=== PATIENT | female | born 1945 | race Caucasian/White ===

== ENCOUNTER 2022-03-13 19:43 | Inpatient (IN) | payer OTHER, SELFPAY ==
[~2022-03-13] VITALS: Ht 160 cm; Wt 68.0 kg
[2022-03-13 21:54] VITALS: BP 132/62
[2022-03-13] MEDS ORDERED: ACETAMINOPHEN TAB 650MG DOSE (2X325MG) PO PRN (23:10)
[2022-03-13] MEDS ORDERED: MOM 30ML SUSPENSION UDC PO PRN (23:10)
[2022-03-13] MEDS ORDERED: UNRESOLVED CLARIFICATION ENTRY XX STA (23:18)
[2022-03-13] MEDS ORDERED: GLUCOSE 4GM CHEW TABLET PO PRN (23:20)
[2022-03-13] MEDS ORDERED: GLUCAGON INJ 1MG VIAL SC PRN (23:20)
[2022-03-13] MEDS ORDERED: DEXTROSE 50% 50 ML SYRINGE IV PRN (23:20)
[2022-03-14] MEDS ORDERED: PIPE3INJ6 IV (03:18)
[2022-03-14] MEDS ORDERED: SPIR1AER INH (03:18)
[2022-03-14] MEDS ORDERED: METF-839 PO (03:18)
[2022-03-14] MEDS ORDERED: DONE-1 PO (03:18)
[2022-03-14] MEDS ORDERED: ASPI-161 PO (03:18)
[2022-03-14] MEDS ORDERED: CALC600T27 PO (03:18)
[2022-03-14] MEDS ORDERED: SYMB16INH INH (03:18)
[2022-03-14] MEDS ORDERED: VANC1PIG IV (03:18)
[2022-03-14] MEDS ORDERED: MEMA10TA19 PO (03:18)
[2022-03-14] MEDS ORDERED: CITA40TA7 PO (03:26)
[2022-03-14] MEDS ORDERED: C 50TAB PO (03:26)
[2022-03-14] MEDS ORDERED: CULT10CA4 PO (03:26)
[2022-03-14] MEDS ORDERED: SENN-122 PO (03:26)
[2022-03-14] MEDS ORDERED: FERR1TAB8 PO (03:26)
[2022-03-14] MEDS ORDERED: DOCU100C16 PO (03:26)
[2022-03-14] MEDS ORDERED: ALBU8.5H INH (03:26)
[2022-03-14] MEDS ORDERED: OMEP-173 PO (03:26)
[2022-03-14] MEDS ORDERED: PRAV40TA2 PO (03:26)
[2022-03-14] MEDS ORDERED: OXYB5TAB10 PO (03:26)
[2022-03-14] MEDS ORDERED: HOME MED LIST COMPLETE! XX SCH (03:30)
[2022-03-14] MEDS ORDERED: ALBUTEROL SULFATE 2.5 MG/0.5 ML INH NEB SOLN NEB PRN (04:20)
[2022-03-14 06:00] VITALS: BP 143/66
[2022-03-14 06:03] LABS: BASO # 0.1 10^3/uL (0.0-0.2); BASO % 0.3 % (0.0-1.0); EOS # 0.8 10^3/uL (0.0-0.5); EOS % 2.2 % (0.0-3.0); HEMATOCRIT 26.8 % (36.0-47.0); HEMOGLOBIN 7.7 g/dl (12.0-15.5); LYMPH # 2.4 10^3/uL (1.5-5.0); LYMPH % 6.9 % (24.0-44.0); MEAN CORPUSCULAR HEMOGLOBIN 23.5 pg (27.0-33.0); MEAN CORPUSCULAR HGB CONC 28.7 g/dl (32.0-36.5); MONO # 0.7 10^3/uL (0.0-0.8); MONO % 1.9 % (2.0-8.0); NEUTROPHILS # 28.4 10^3/uL (1.5-8.5); NEUTROPHILS % 83.1 % (36.0-66.0); PLATELET COUNT, AUTOMATED 175 10^3/uL (150-450); RED BLOOD COUNT 3.27 10^6/uL (4.00-5.40)
[2022-03-14 06:06] LABS: WHITE BLOOD COUNT 34.2 10^3/uL (4.0-10.0)
[2022-03-14] MEDS: INSULIN LISPRO (NovoLOG) PER UNIT SC SCH ×3 (07:30→17:09)
[2022-03-14 07:35] LABS: ALBUMIN 2.7 G/DL (3.2-5.2); ALT/SGPT 13 U/L (7.0-40); BILIRUBIN,TOTAL 0.3 MG/DL (0.3-1.2); BLOOD UREA NITROGEN 7 MG/DL (9-23); CALCIUM LEVEL 8.4 MG/DL (8.3-10.6); CARBON DIOXIDE LEVEL 28 MMOL/L (20-31); CHLORIDE LEVEL 102 MMOL/L (98-107); CREATININE FOR GFR 0.67 MG/DL (0.55-1.30); GLOMERULAR FILTRATION RATE > 60.0 (>39); GLUCOSE, FASTING 102 MG/DL (74-106); POTASSIUM SERUM 3.5 MMOL/L (3.5-5.1); SODIUM LEVEL 138 MMOL/L (136-145); TOTAL PROTEIN 5.9 G/DL (5.7-8.2)
[2022-03-14 09:26] LABS: APPEARANCE, URINE MANUAL CLEAR (CLEAR); COLOR, URINE MANUAL YELLOW (YELLOW)
[2022-03-14 09:27] LABS: BILIRUBIN, URINE MANUAL NEGATIVE (NEGATIVE); GLUCOSE, URINE (UA) MANUAL NEGATIVE (NEGATIVE); KETONE, URINE MANUAL NEGATIVE (NEGATIVE); LEUKOCYTE ESTERASE, URINE MAN NEGATIVE (NEGATIVE); NITRITE, URINE MANUAL NEGATIVE (NEGATIVE); PROTEIN, URINE MANUAL 2+ mg/dL (NEGATIVE); SPECIFIC GRAVITY,URINE MANUAL 1.015 (1.002-1.035); UROBILINOGEN, URINE MANUAL NORMAL (NORMAL)
[2022-03-14 09:28] LABS: BLOOD URINE MANUAL NEGATIVE (NEGATIVE)
[2022-03-14] MEDS: DOCUSATE SODIUM 100MG CAPSULE PO SCH (09:37)
[2022-03-14] MEDS: PRAVASTATIN 20 MG TAB PO SCH (09:37)
[2022-03-14] MEDS: FERROUS SULFATE 325MG TAB PO SCH ×3 (09:37→20:25)
[2022-03-14] MEDS: CitaloPRAM (CeleXA) 20 MG TAB PO SCH (09:37)
[2022-03-14] MEDS: NYSTATIN 500,000 U/5 ML SUSP UDC SS SCH ×3 (09:37→20:25)
[2022-03-14] MEDS: OMEPRAZOLE 20MG CAP PO SCH (09:37)
[2022-03-14 10:05] LABS: BACTERIA, URINE SMALL AMOUNT; RBC, URINE 0-1 /hpf (0-3); SQUAMOUS EPITHELIAL CELL URINE MOD AMOUNT /hpf (SMALL AMT)
[2022-03-14 10:06] LABS: GRANULAR CAST, URINE 0-1 /lpf; MUCUS, URINE MOD AMOUNT (NEGATIVE); YEAST, URINE SMALL AMOUNT
[2022-03-14 10:37] LABS: FERRITIN 30.6 NG/ML (7.3-270.7); IRON (FE) 17 UG/DL (50-170); PERCENT SATURATION 6.7 % (13.2-45.0); TOTAL IRON BINDING CAPACITY 255 UG/DL (250-425); VITAMIN B12 LEVEL 247 PG/ML (211-911)
[2022-03-14] MEDS: TIOTROPIUM INHALER/CAPSULE (SPIRIVA) INH SCH (13:54)
[2022-03-14 14:00] VITALS: BP 145/65
[2022-03-14] MEDS: oxyBUTYnin 5 MG TAB PO SCH ×2 (15:10→20:25)
[2022-03-14 17:12] LABS: FOLATE 5.6 NG/ML (>5.4)
[2022-03-14 19:21] VITALS: BP 133/57
[2022-03-14] MEDS: SYMBICORT 160/4.5MCG INHALER 6GM INH SCH (19:48)
[2022-03-14 19:49] VITALS: O2SAT 97
[2022-03-14] MEDS ORDERED: INSULIN LISPRO (NovoLOG) PER UNIT SC SCH (21:00)
[2022-03-14] MEDS ORDERED: SENOKOT S TAB PO SCH (21:00)
[2022-03-15 05:43] VITALS: BP 118/64
[2022-03-15 07:20] LABS: HEMATOCRIT 26.5 % (36.0-47.0); HEMOGLOBIN 7.6 g/dl (12.0-15.5); MEAN CORPUSCULAR HEMOGLOBIN 24.1 pg (27.0-33.0); MEAN CORPUSCULAR HGB CONC 28.7 g/dl (32.0-36.5); MEAN CORPUSCULAR VOLUME 83.9 fl (80.0-96.0); PLATELET COUNT, AUTOMATED 155 10^3/uL (150-450); RED BLOOD COUNT 3.16 10^6/uL (4.00-5.40); WHITE BLOOD COUNT 27.8 10^3/uL (4.0-10.0)
[2022-03-15] MEDS: INSULIN LISPRO (NovoLOG) PER UNIT SC SCH ×2 (07:30→12:04)
[2022-03-15 07:54] LABS: BLOOD UREA NITROGEN 9 MG/DL (9-23); CALCIUM LEVEL 8.4 MG/DL (8.3-10.6); CARBON DIOXIDE LEVEL 30 MMOL/L (20-31); CHLORIDE LEVEL 103 MMOL/L (98-107); CREATININE FOR GFR 0.68 MG/DL (0.55-1.30); FERRITIN 29.9 NG/ML (7.3-270.7); GLOMERULAR FILTRATION RATE > 60.0 (>39); GLUCOSE, FASTING 94 MG/DL (74-106); POTASSIUM SERUM 3.2 MMOL/L (3.5-5.1); SODIUM LEVEL 140 MMOL/L (136-145)
[2022-03-15 07:57] LABS: EOSINOPHILS 4 % (0-3); LYMPHOCYTES 6 % (16-44); METAMYELOCYTES 1 % (0-0); MONOCYTES 1 % (0-5); MYELOCYTES 1 % (0-0); NEUTROPHILS 87 % (28-66)
[2022-03-15 07:58] LABS: ANISOCYTOSIS 4+; OVALOCYTES 1+; POIKILOCYTOSIS 1+
[2022-03-15 07:59] LABS: PLATELET ESTIMATE NORMAL (NORMAL); POLYCHROMASIA 1+
[2022-03-15 08:00] LABS: SCHISTOCYTES 2+
[2022-03-15 08:02] LABS: HYPOCHROMASIA 1+
[2022-03-15 08:29] LABS: ERYTHROCYTE SEDIMENTATION RATE 26 mm/hr (0-30)
[2022-03-15 08:30] VITALS: O2SAT 91
[2022-03-15] MEDS: SYMBICORT 160/4.5MCG INHALER 6GM INH SCH (08:32)
[2022-03-15] MEDS: TIOTROPIUM INHALER/CAPSULE (SPIRIVA) INH SCH (08:32)
[2022-03-15] MEDS: DOCUSATE SODIUM 100MG CAPSULE PO SCH ×2 (09:00→09:32)
[2022-03-15] MEDS ORDERED: POTASSIUM CHLORIDE 10MEQ SR TABLET PO ONE (09:25)
[2022-03-15] MEDS: OMEPRAZOLE 20MG CAP PO SCH (09:32)
[2022-03-15] MEDS: CitaloPRAM (CeleXA) 20 MG TAB PO SCH (09:32)
[2022-03-15] MEDS: FERROUS SULFATE 325MG TAB PO SCH (09:33)
[2022-03-15] MEDS: PRAVASTATIN 20 MG TAB PO SCH (09:33)
[2022-03-15] MEDS: oxyBUTYnin 5 MG TAB PO SCH (09:33)
[2022-03-15] MEDS: NYSTATIN 500,000 U/5 ML SUSP UDC SS SCH ×2 (09:49→15:27)
[2022-03-15] MEDS ORDERED: NYST50SS SS (13:23)
[2022-03-15 14:00] VITALS: BP 132/62
== END 2022-03-15 16:54 | disposition home or self-care (01) | DRG 815 ==
LOC: M MSPAV 21:35
PROVIDERS: ADMIT Internal Medicine Nephrology; ATTEND Internal Medicine Nephrology
DX: D72.829 Elevated white blood cell count, unspecified (principal); B37.0 Candidal stomatitis; J96.11 Chronic respiratory failure with hypoxia; K21.9 Gastro-esophageal reflux disease without esophagitis; E11.9 Type 2 diabetes mellitus without complications; D69.6 Thrombocytopenia, unspecified; I10 Essential (primary) hypertension; J44.9 Chronic obstructive pulmonary disease, unspecified; F03.90 Unspecified dementia, unspecified severity, without behavioral disturbance, psychotic disturbance, mood disturbance, and anxiety; D50.9 Iron deficiency anemia, unspecified; E78.5 Hyperlipidemia, unspecified; Z99.81 Dependence on supplemental oxygen; K59.00 Constipation, unspecified; K64.8 Other hemorrhoids; Z79.899 Other long term (current) drug therapy; Z79.82 Long term (current) use of aspirin; Z88.5 Allergy status to narcotic agent; F17.200 Nicotine dependence, unspecified, uncomplicated